=== PATIENT | male | born 1950 | race Caucasian/White ===

== ENCOUNTER → 2016-06-28 | Outpatient (CLI) | payer BC ==
[~2016-06-28] MED LIST: ACET-2047 PO; ADV25050 INHALATION; ALBU8.5H3 INH; AMLO-147 PO; APIX5TAB PO; ASPI-664 PO; ATEN50TA PO; ATOR40TA68 PO; ENAL20TA PO; ESOM20CA PO; FER325 PO; FURO40TA4 PO; METF500T4 PO
[2016-06-28 10:41] LABS: AADO2 Arterial 28.4 mmHg (7.0-24.0); Arterial Base Excess 5.3 mmol/L (-3.0-3); Arterial COHb 0.8 % (0.0-3.0); Arterial Fraction of Oxyhgb 89.2 % (93.0-99.0); Arterial HCO3 31.4 mmol/L (22.0-26.0); Arterial MetHb 0.2 % (0.0-1.5); Arterial Total Hemglobin 14.9 g/dl (12.0-18.0); MODE ROOM AIR
== END | disposition home or self-care (01) ==
LOC: PUL 09:30
PROVIDERS: ATTEND Internal Medicine Pulmonary Disease
DX: R09.02 Hypoxemia (principal); J40 Bronchitis, not specified as acute or chronic
CPT/HCPCS: 36600; 82803